=== PATIENT | male | born 1990 | race Caucasian/White ===

== ENCOUNTER 2017-02-15 05:25 | Emergency (ER) | payer BC, OTHER ==
--- NOTE | 2017-02-15 07:57 | ER Document Report ---
HPI - HPI Patient complains to provider of: right ear pain Onset: Last week Onset/Duration: Gradual, Persistent Pain Level: 5 Context: 26 yo male with right ear pain since last week, had prior URI. Prescribed azithromycin by urgent care, not hleping, hurts into neck muscle. No fever or swelling. Associated Symptoms: None Exacerbated by: Movement Relieved by: Denies Similar symptoms previously: No Recently seen / treated by doctor: Yes - ROS ROS below otherwise negative: Yes Systems Reviewed and Negative: Yes All other systems reviewed and negative - DERM Skin Color: Normal, [place] Past Medical History - General Information source: Patient - Social History Smoking Status: Current Some Day Smoker Chew tobacco use (# tins/day): No Frequency of alcohol use: None Drug Abuse: None Lives with: Spouse/Significant other Family History: Reviewed & Not Pertinent - Medical History Medical History: Negative Renal/ Medical History: Denies: Hx Peritoneal Dialysis Surgical Hx: Negative - Immunizations Hx Diphtheria, Pertussis, Tetanus Vaccination: Yes Vertical Provider Document - CONSTITUTIONAL Agree With Documented VS: Yes Exam Limitations: No Limitations General Appearance: No Apparent Distress - INFECTION CONTROL TRAVEL OUTSIDE OF THE [place] IN LAST 30 DAYS: No - HEENT HEENT: Normocephalic, Tympanic Membrane Red - right, Tympanic Membrane Bulging Notes: non tender mastoid, layered wax next to TM - NECK Neck: Supple. negative: Lymphadenopathy-Left, Lymphadenopathy-Right - RESPIRATORY Respiratory: Breath Sounds Normal, No Respiratory Distress O2 Sat by Pulse Oximetry: 99 - CARDIOVASCULAR Cardiovascular: Regular Rate, Regular Rhythm - NEURO Level of Consciousness: Awake, Alert - DERM Integumentary: Warm, Dry, No Rash Course - Vital Signs Vital signs: Temp Pulse Resp BP Pulse Ox 97.9 F 67 16 130/60 H 99 02/15/17 05:33 02/15/17 05:33 02/15/17 05:33 02/15/17 05:33 02/15/17 05:33 Discharge - Discharge Clinical Impression: neck muscle tenderness Right otitis media Qualifiers: Otitis media type: suppurative Chronicity: acute Recurrence: not specified as recurrent Spontaneous tympanic membrane rupture: without spontaneous rupture Qualified Code(s): H66.001 - Acute suppurative otitis media without spontaneous rupture of ear drum, right ear Condition: Good Disposition: HOME, SELF-CARE Instructions: Otitis Media ([facility]), Amoxicillin ([facility]), Use of Ear Drops ([facility]), ENT, Ultram ([facility]) Additional Instructions: warm compress Return to the emergency room if worse See ENT doctor if persists Continue the Zithromax Please complete the patient satisfaction survey if you get one, and return it.. If you do not receive a survey, then you can go to the [facility] website, [email or web address] and place your comments about your very good care. Thank you very much. It was a pleasure being your medical provider today. Prescriptions: Amoxicillin Trihydrate [Amoxil 500 mg Capsule] 1,000 mg PO BID #30 cap Neomy Sulf/Polymyx B Sulf/Hc [Cortisporin Otic Susp] 2 drop AD QID #1 bottle Tramadol HCl [Ultram 50 mg Tablet] 50 mg PO ASDIR PRN #20 tablet PRN Reason:
[2017-02-15 08:28] VITALS: BP 126/70
== END 2017-02-15 08:27 | disposition home or self-care (01) ==
LOC: ER 05:25
DX: H66.001 Acute suppurative otitis media without spontaneous rupture of ear drum, right ear (principal); M54.2 Cervicalgia; H92.01 Otalgia, right ear; F17.200 Nicotine dependence, unspecified, uncomplicated
CPT/HCPCS: 99282